=== PATIENT | female | born 1960 | race Two or more races ===

== ENCOUNTER 2022-08-28 23:20 | Inpatient (IN) | payer MEDICAID, OTHER ==
[~2022-08-28] VITALS: Ht 152.4 cm; Wt 76.1 kg
[2022-08-29 06:03] LABS: Basophils # (auto) 0.2 10 ^3/uL (0-0.2); Basophils % (auto) 1.3 % (0.0-2.0); Eosinophils # (auto) 0.1 10 ^3/uL (0-0.8); Eosinophils % (auto) 0.6 % (0.0-7.0); Hematocrit 40.6 % (36.0-46.0); Hemoglobin 13.6 g/dL (12.2-16.2); Lymphocytes # (auto) 3.9 10 ^3/uL (0.4-5.4); Lymphocytes % (auto) 32.6 % (10.0-50.0); Mean Corpuscular Hgb Conc. 33.6 g/dL (32.0-36.0); Mean Corpuscular Volume 89.3 fL (80.0-100.0); Monocytes # (auto) 0.8 10 ^3/uL (0-1.3); Monocytes % (auto) 6.9 % (0.0-12.0); Neutrophils % (auto) 58.6 % (37.0-80.0); Nucleated Red Blood Cells % 0.2 %; Red Blood Cells 4.54 10^6/uL (4.0-5.20); Red Cell Distribution Width 13.6 % (11.8-14.3); White Blood Cell 11.9 10^3/uL (4.4-10.8)
[2022-08-29 06:15] LABS: INR 0.98 (0.9-1.15); Partial Thromboplastin Time 31.6 sec (24.6-33.4)
[2022-08-29 06:32] LABS: Albumin 4.1 g/dL (3.4-5.0); BUN/Creatinine Ratio 23.4 (10.0-20.0); Bilirubin, Total 0.5 mg/dL (0.2-1.0); Calcium 8.8 mg/dL (8.5-10.1); Total Protein 7.8 g/dL (6.4-8.2)
[2022-08-29] MEDS ORDERED: LOSARTAN POTASSIUM 50 MG TAB PO ONE (09:15)
[2022-08-29] MEDS ORDERED: HYDROcodone-ACET 5/325MG TAB PO PRN (09:45)
[2022-08-29] MEDS ORDERED: LABETALOL HCL 5 MG/ML 4ML SYRINGE IV ONE (09:45)
[2022-08-29] MEDS ORDERED: MORPHINE SULFATE INJ 2 MG/ml SYRG IV PRN (09:45)
[2022-08-29] MEDS ORDERED: ACETAMINOPHEN 325 MG TAB PO PRN (09:45)
[2022-08-29] MEDS ORDERED: METOCLOPRAMIDE HCL 5MG/ml INJ 2ml VIAL IV PRN (09:45)
[2022-08-29] MEDS ORDERED: NITROGLYCERIN 0.4 MG SL TAB SL PRN (09:45)
[2022-08-29] MEDS ORDERED: hydrALAZINE HCL 20 MG/ML VL IV PRN (09:45)
[2022-08-29] MEDS ORDERED: DOCUSATE SOD 100 MG CAP PO PRN (09:45)
[2022-08-29] MEDS ORDERED: LABETALOL HCL 5 MG/ML 4ML SYRINGE IV PRN (09:45)
[2022-08-29 10:02] LABS: Cholesterol 190 mg/dL (< 200); HDL Cholesterol 46 mg/dL (40-59); LDL Cholesterol 124 mg/dL (< 100); Triglycerides 169 mg/dL (< 150)
[2022-08-29] MEDS: amLODIPine BESYLATE 5 MG TAB PO SCH (10:20)
[2022-08-29] MEDS: ASPirin-EC 81 mg tab PO SCH (10:20)
[2022-08-29] MEDS: ENOXAPARIN SOD 40 MG/0.4 ML SYRINGE SC SCH (11:20)
[2022-08-29 11:46] LABS: Urine Bacteria NONE SEEN /hpf (None Seen); Urine Blood Negative /uL (Negative); Urine Specific Gravity 1.011 (1.001-1.035); Urine WBC 10 /hpf (0 - 5)
[2022-08-29] MEDS: SODIUM CHLOR 0.9% PF (SALINE LOCK) 10ML VIAL/SYR IV SCH ×2 (14:04→22:11)
[2022-08-30] MEDS ORDERED: LOSA25TA15 PO (00:45)
[2022-08-30] MEDS ORDERED: HYDR12.59 PO (00:45)
[2022-08-30 05:00] VITALS: BP 149/59
[2022-08-30] MEDS: SODIUM CHLOR 0.9% PF (SALINE LOCK) 10ML VIAL/SYR IV SCH ×3 (05:56→22:22)
[2022-08-30 09:00] VITALS: BP 132/68
[2022-08-30] MEDS: amLODIPine BESYLATE 5 MG TAB PO SCH (11:18)
[2022-08-30] MEDS: ASPirin-EC 81 mg tab PO SCH (11:18)
[2022-08-30] MEDS: ENOXAPARIN SOD 40 MG/0.4 ML SYRINGE SC SCH (11:18)
[2022-08-30 14:49] VITALS: BP 152/59
[2022-08-30] MEDS ORDERED: AMLO1TAB22 PO (16:56)
[2022-08-30 17:00] VITALS: BP 131/61
[2022-08-30] MEDS: ATORVASTATIN 20 MG TAB PO SCH (22:21)
[2022-08-30] MEDS: METOPROLOL TARTRATE 25 MG TAB PO SCH (22:22)
[2022-08-30 22:26] VITALS: BP 142/69
[2022-08-31 05:34] VITALS: BP 146/75
[2022-08-31] MEDS: SODIUM CHLOR 0.9% PF (SALINE LOCK) 10ML VIAL/SYR IV SCH ×3 (06:12→21:20)
[2022-08-31 07:30] VITALS: BP 151/58
[2022-08-31] MEDS ORDERED: ADENOSINE 64 MG in GIVE UN-DILUTED 0 ML IV ONE (08:00)
[2022-08-31 09:00] VITALS: BP 151/58
[2022-08-31] MEDS: ASPirin-EC 81 mg tab PO SCH (09:44)
[2022-08-31] MEDS: ENOXAPARIN SOD 40 MG/0.4 ML SYRINGE SC SCH (09:44)
[2022-08-31] MEDS: amLODIPine BESYLATE 5 MG TAB PO SCH (09:44)
[2022-08-31] MEDS: METOPROLOL TARTRATE 25 MG TAB PO SCH ×2 (09:44→21:20)
[2022-08-31 13:00] VITALS: BP 162/55
[2022-08-31 17:00] VITALS: BP 159/79
[2022-08-31] MEDS: ATORVASTATIN 20 MG TAB PO SCH (21:20)
[2022-08-31 21:39] VITALS: BP 159/79
[2022-09-01 04:37] VITALS: BP 149/61
[2022-09-01] MEDS: SODIUM CHLOR 0.9% PF (SALINE LOCK) 10ML VIAL/SYR IV SCH (06:15)
[2022-09-01 09:05] VITALS: BP 164/76
[2022-09-01] MEDS ORDERED: AMLO1TAB23 PO (09:36)
[2022-09-01] MEDS ORDERED: METO-158 PO (09:36)
[2022-09-01] MEDS ORDERED: ASPI1TAB20 PO (09:36)
[2022-09-01] MEDS ORDERED: ATO40T PO (09:39)
[2022-09-01] MEDS: ASPirin-EC 81 mg tab PO SCH (10:09)
[2022-09-01] MEDS: amLODIPine BESYLATE 5 MG TAB PO SCH (10:10)
[2022-09-01] MEDS: ENOXAPARIN SOD 40 MG/0.4 ML SYRINGE SC SCH (10:11)
[2022-09-01] MEDS: METOPROLOL TARTRATE 25 MG TAB PO SCH (10:11)
[2022-09-01 11:27] VITALS: BP 165/75
[2022-09-01 12:00] VITALS: BP 155/63
== END 2022-09-01 12:15 | disposition home or self-care (01) | DRG 199 ==
LOC: ER 23:20 → EDBD 23:20 → TELE 08-29 09:47 → TELE-EAST 08-29 22:11
PROVIDERS: ADMIT Internal Medicine; ATTEND Family Medicine
DX: I16.1 Hypertensive emergency (principal); E66.9 Obesity, unspecified; R00.2 Palpitations; E78.00 Pure hypercholesterolemia, unspecified; Z86.73 Personal history of transient ischemic attack (TIA), and cerebral infarction without residual deficits; Z59.7 Insufficient social insurance and welfare support; Z68.32 Body mass index [BMI] 32.0-32.9, adult
CPT/HCPCS: 36415; 71045; 78452; 80053; 80061; 81001; 83880; 84443; 84484; 85025; 85610; 85730; 93005; 93017; 93306; 96372; 96374; G0378; J0153; J3490